=== PATIENT | female | born 1965 | race Caucasian/White ===

== ENCOUNTER 2018-04-27 15:47 | Emergency (ER) | payer MEDICAID ==
[2018-04-27] MEDS: LIDOCAINE 1% (MDV) 10 ML INJ INFIL (17:53)
== END 2018-04-27 18:15 | disposition home or self-care (01) ==
LOC: FTE 15:47
DX: L02.412 Cutaneous abscess of left axilla (principal)
CPT/HCPCS: 10060; 99283-25

== ENCOUNTER 2018-04-29 08:59 | Emergency (ER) | payer MEDICAID | END 2018-04-29 09:59 | disposition home or self-care (01) | LOC: FTE 08:59 | DX: Z48.01 Encounter for change or removal of surgical wound dressing (principal) | CPT/HCPCS: 99281; Z7502 ==